=== PATIENT | female | born 1945 | race Caucasian/White ===

== ENCOUNTER → 2016-07-11 | Outpatient (CLI) | payer MEDICARE, OTHER ==
[2016-07-11 07:55] LABS: BASOPHILS % (AUTO) 0 % (0-2); EOSINOPHILS # (AUTO) 0.3 10^3uL; EOSINOPHILS % (AUTO) 4 % (0-4); LYMPHOCYTES # (AUTO) 2.5 X10^3; MEAN CORPUSCULAR HEMOGLOBIN 29.9 PG (26.0-34.0); MEAN CORPUSCULAR VOLUME 88 FL (80-100); MEAN PLATELET VOLUME 10.1 FL (6.0-9.5); MONOCYTES # (AUTO) 0.6 X10^3; MONOCYTES % (AUTO) 7 % (3-11); NEUTROPHILS # (AUTO) 5.3 X10^3; NEUTROPHILS % (AUTO) 60 % (51-67); PLATELET COUNT 297 10^3uL (150-450); WHITE BLOOD COUNT 8.75 10^3uL (4.0-11.0)
[2016-07-11 08:06] LABS: BILIRUBIN,URINE Negative (Negative); CLARITY,URINE Clear; GLUCOSE, URINE (UA) Negative (Negative); LEUKOCYTE ESTERASE ,URINE Negative (Negative); PH,URINE 5.5 (5.0 - 8.0); UROBILINOGEN,URINE 0.2 mg/dL (0.2-1.0)
[2016-07-11 08:17] LABS: ALBUMIN 4.3 g/dL (3.4-5.0); ANION GAP 14.1 MEQ/L (3-15); TOTAL PROTEIN 7.9 g/dL (6.4-8.5)
[2016-07-11 08:19] LABS: COLOR,URINE Dark Yellow
[2016-07-11 08:20] LABS: URINE CENTRIFUGED VOLUME 12 mL
== END ==
LOC: LAB 07:28
PROVIDERS: ATTEND Family Medicine
DX: R73.03 Prediabetes (principal); E11.9 Type 2 diabetes mellitus without complications; I10 Essential (primary) hypertension
CPT/HCPCS: 36415; 80053; 80061; 81003; 81015; 83036; 85025; 87088